=== PATIENT | male | born 1975 | race Two or more races ===

== ENCOUNTER 2021-08-26 18:39 | Emergency (ER) | payer MEDICAID ==
[~2021-08-26] VITALS: Ht 165.1 cm; Wt 68.0 kg
[2021-08-27 03:04] VITALS: BP 133/76
== END 2021-08-27 03:28 | disposition home or self-care (01) ==
LOC: ER 18:39
DX: L02.01 Cutaneous abscess of face (principal); R51.9 Headache, unspecified